=== PATIENT | female | born 1990 | race Hispanic/Latino ===

== ENCOUNTER 2023-08-30 12:36 | Emergency (ER) | payer MEDICAID ==
[~2023-08-30] VITALS: Ht 165.1 cm; Wt 72.6 kg
[2023-08-30 14:00] LABS: SARS-CoV-2, RNA, NAAT NEGATIVE SARS CoV-2 (NEGATIVE)
[2023-08-30 14:05] LABS: INFLUENZA TYPE A Negative For Type A (NEGATIVE); INFLUENZA TYPE B Negative For Type B (NEGATIVE)
[2023-08-30] MEDS ORDERED: ALBUTEROL 0.083% 2.5 MG/3 ML INH IH ONE ×2 (14:30→15:30)
[2023-08-30] MEDS ORDERED: DEXAMETHASONE SOD PHOSPHATE 4 MG/ML 1ML VIAL IVP ONE (14:30)
[2023-08-30 15:02] VITALS: BP 146/90; O2SAT 99
[2023-08-30] MEDS ORDERED: PRED20TA3 PO (15:05)
[2023-08-30 15:19] VITALS: PULSE 113; RESP 22
== END 2023-08-30 15:27 | disposition home or self-care (01) ==
LOC: EDH 12:36
DX: J45.901 Unspecified asthma with (acute) exacerbation (principal); E11.9 Type 2 diabetes mellitus without complications; I10 Essential (primary) hypertension; J44.9 Chronic obstructive pulmonary disease, unspecified; Z20.822 Contact with and (suspected) exposure to COVID-19
CPT/HCPCS: 99284; 96374; 71045; 87635; 87804 ×2; 94640; J1100; C9803